=== PATIENT | female | born 1935 | race Caucasian/White ===

== ENCOUNTER 2021-12-05 13:23 | Inpatient (IN) | payer MEDICARE, OTHER ==
[~2021-12-05] VITALS: Ht 152.4 cm; Wt 56.7 kg
--- NOTE | 2021-12-05 13:30 | NUR ---
CRITICAL TROP REPORTED TO
--- NOTE | 2021-12-05 13:58 | NUR ---
IN ED WITH REPORT OF FALL AND RIGHT HIP PAIN, PLACED ON CM AND MAINTAIN SAFE ENVIRONMENT, PER CM SR AND VSS. RIGHT HIP IN ALIGNMENT.POSITION FOR COMFORT.
[2021-12-05 14:45] LABS: HEMATOCRIT 43.5 % (31.2-41.9); MEAN CORPUSCULAR HEMOGLOBIN 29.3 uug (24.7-32.8); MEAN CORPUSCULAR VOLUME 87.9 fL (75.5-95.3); PLATELET COUNT (AUTO) 195 K/uL (179-408)
[2021-12-05 14:48] LABS: CREATININE 0.8 mg/dL (0.6-1.3)
[2021-12-05 14:53] LABS: BILIRUBIN,TOTAL 1.1 mg/dL (0.2-1.0); TOTAL PROTEIN, SERUM 6.9 g/dL (6.4-8.2)
[2021-12-05] MEDS ORDERED: ASPIRIN 81 MG TAB.CHEW PO ONE (15:45)
--- NOTE | 2021-12-05 15:58 | NUR ---
BATCH OR CONTINUOUS STILL OPERATOR OBTAINED 12 LEAD EKG AND GIVEN TO
[2021-12-05 16:39] LABS: *BILIRUBIN,URIN NEGATIVE (NEGATIVE); *CLARITY,URINE CLEAR (CLEAR); *COLOR,URINE YELLOW (YELLOW); *KETONES,URINE 2+ (NEGATIVE); *UROBILINOGEN,URINE 0.2 E.U./dl (NORMAL); LEUKOCYTE ESTERASE ,URINE NEGATIVE (NEGATIVE); NITRITE, URINE NEGATIVE (NEGATIVE); UGLUCOSE NEGATIVE (NEGATIVE)
[2021-12-05 16:40] LABS: *BLOOD, URINE TRACE (NEGATIVE)
[2021-12-05 16:58] LABS: BACTERIA,URINE FEW /HPF (NONE SEEN); RBC,URINE 0-3 /HPF (0-3); SQUAMOUS EPITHELIAL CELL,UR FEW /HPF (NONE SEEN); WBC,URINE 0-3 /HPF (0-3)
--- NOTE | 2021-12-05 17:15 | NUR ---
PATIENT ADMITTED TO [facility] FOR ELEVATED LEUKO AND TROP, POTASSIUM 3.0 NO ORDER FOR REPLACEMENT.
[2021-12-05] MEDS ORDERED: hydrALAZINE HCL 20 MG/1 ML VIAL IV PRN (17:30)
[2021-12-05] MEDS: CEFEPIME HCL 1 G in IV DEXTROSE 5% 50 ML IV SCH ×3 (17:30→18:30)
[2021-12-05] MEDS ORDERED: ONDANSETRON 4 MG/2 ML VIAL IV PRN (17:30)
[2021-12-05] MEDS ORDERED: VANCOMYCIN IV 1,000 MG in IV DEXTROSE 5% 250 ML IV SCH (17:30)
[2021-12-05] MEDS ORDERED: MAGNESIUM HYDROXIDE 30 ML LIQUID UDC PO PRN (17:30)
--- NOTE | 2021-12-05 17:40 | NUR ---
ELEVATED TROP CALLED TO RN AND REPORTED ELEVATED TROP TO ED PHYSICIAN: TROP 155. 1330/ LACTIC 2.4, ELEVATED.
--- NOTE | 2021-12-05 19:30 | NUR ---
REPORT GIVEN TO INCOMING RN
--- NOTE | 2021-12-05 19:30 | NUR ---
CALLED OUTSIDE PHARMACY TO VERIFY VACOMYCIN AND MAXEPINE ORDER.
[2021-12-05] MEDS ORDERED: ASPIRIN 81 MG TAB.CHEW ONE (19:34)
[2021-12-05] MEDS ORDERED: VANCOMYCIN HCL 500 MG VIAL ONE ×2 (19:35→20:12)
[2021-12-05] MEDS ORDERED: CEFEPIME HCL 1 G VIAL ONE ×2 (19:35→21:28)
--- NOTE | 2021-12-05 19:55 | NUR ---
PHARMACY CALLED TO CLARIFY ORDER B/C FREQUENCY FOR BOTH ORDERS WAS INCORRECT. DOCTOR MARIANN WAS CONTACTED TO REVIEW THE ORDER. PER HIS REQUEST, THE PHARMACY CHANGED THE FREQUNCY FOR THE MEDICATIONS.
[2021-12-05] MEDS ORDERED: VANCOMYCIN IV 1,000 MG in IV DEXTROSE 5% 250 ML IV ONE (20:00)
--- NOTE | 2021-12-05 20:00 | NUR ---
THE UNVERIFIED VACOMYCIN ORDER WAS GIVEN AT 1948; THEREFORE, WHEN THE PHARMACY VERIFIED THE NEW ORDER FOR VACOMYCIN I PUT NON-ADMIN (STATING TO REFER TO NURING NOTE).
--- NOTE | 2021-12-05 20:43 | NUR ---
NOTIFIED DR. NAVARRETE THAT POTASSIUM FOR PATIENT 3.0 NO PCP DID NOT REPLACED.
[2021-12-05] MEDS ORDERED: POTASSIUM BICARBONATE/CIT AC 25 MEQ TABLET.EFF PO ONE (20:45)
[2021-12-05] MEDS ORDERED: CEFEPIME HCL 1 G in IV DEXTROSE 5% 50 ML IV ONE (21:00)
[2021-12-05] MEDS ORDERED: POTASSIUM BICARBONATE/CIT AC 25 MEQ TABLET.EFF ONE (21:28)
--- NOTE | 2021-12-05 21:35 | NUR ---
REPORT GIVEN TO DUNCAN RIZZO.
--- NOTE | 2021-12-05 21:37 | NUR ---
Report received from Tara RIZZO
[2021-12-05 22:30] VITALS: BP 112/60
--- NOTE | 2021-12-05 22:30 | NUR ---
Pt. admitted to TELE room 314, under care of Dr. Proctor. Belongs List completed Carin RIZZO aware of patients arrival to unit.
[2021-12-05] MEDS: IV NS 1000 ML 1,000 ML IV SCH (23:18)
[2021-12-06 00:52] VITALS: BP 110/61
[2021-12-06 04:23] VITALS: BP 133/71
--- NOTE | 2021-12-06 05:37 | NUR ---
Admitted to Tele, SR on monitor. Pt is confused but able to be redirected and answer simple questions. IV site is intact, running ordered fluids. Tolerated all medications given. Will endorse to day shift.
[2021-12-06] MEDS: IV NS 1000 ML 1,000 ML IV SCH ×3 (06:07→22:04)
--- NOTE | 2021-12-06 06:46 | NUR ---
No urine noted in diaper this morning, Cruzito Franco MACHINE SKIVER noted with orders to just monitor for now. No distress noted.
[2021-12-06 07:07] LABS: HEMATOCRIT 40.1 % (31.2-41.9); MEAN CORPUSCULAR HEMOGLOBIN 29.7 uug (24.7-32.8); MEAN CORPUSCULAR VOLUME 87.1 fL (75.5-95.3); PLATELET COUNT (AUTO) 204 K/uL (179-408)
[2021-12-06 08:05] LABS: BILIRUBIN,TOTAL 0.9 mg/dL (0.2-1.0); CREATININE 0.8 mg/dL (0.6-1.3); PHOSPHOROUS 2.3 mg/dL (2.5-4.9); POTASSIUM 3.7 mmol/L (3.5-5.1); TOTAL PROTEIN, SERUM 6.3 g/dL (6.4-8.2)
[2021-12-06] MEDS: CEFEPIME HCL 2 G in IV DEXTROSE 5% 100 ML IV SCH ×2 (08:26→22:04)
[2021-12-06] MEDS: DOCUSATE SODIUM 100 MG CAPSULE PO SCH ×2 (09:16→17:15)
[2021-12-06] MEDS: HEPARIN SODIUM,PORCINE 5,000 UNITS/ML VIAL SQ SCH ×2 (09:17→22:05)
--- NOTE | 2021-12-06 10:51 | NUR ---
Patient was pulling her IV tubes and constantly tried to knock out her IV pole. Had to order mitten restraints and explain to the patient why she will have mittens on. Currently patient is taking a nap. No distress notes at the moment. Will continue to monitor
--- NOTE | 2021-12-06 10:57 | NUR ---
Patient's diaper was wet when we changed her, so she had some urine output. Will continue to monitor during the day.
[2021-12-06] MEDS: ACETAMINOPHEN 325 MG TABLET PO PRN (12:06)
[2021-12-06 12:07] VITALS: BP 95/69
[2021-12-06] MEDS ORDERED: LEVO50TA PO (12:15)
[2021-12-06] MEDS ORDERED: LATA2.5D15 EACHEYE (12:15)
[2021-12-06] MEDS ORDERED: ROSU10TA2 PO (12:15)
[2021-12-06] MEDS ORDERED: TRAZ-182 PO (12:15)
[2021-12-06] MEDS ORDERED: DONE10TA44 PO (12:15)
[2021-12-06] MEDS: VANCOMYCIN IV 1,000 MG in IV DEXTROSE 5% 250 ML IV SCH (13:47)
[2021-12-06] MEDS: METOPROLOL TARTRATE 25 MG TABLET PO SCH ×2 (15:00→22:00)
[2021-12-06] MEDS ORDERED: NEUTRA PHOS PACKET PO ONE (16:00)
[2021-12-06 16:10] VITALS: BP 106/66
[2021-12-06] MEDS ORDERED: AMIODARONE HCL IV 150 MG in IV DEXTROSE 5% 100 ML IV ONE (16:45)
[2021-12-06] MEDS: AMIODARONE HCL IV 450 MG in IV DEXTROSE 5% 250 ML IV PRN (17:45)
[2021-12-06 20:00] VITALS: BP 95/67
--- NOTE | 2021-12-06 22:00 | NUR ---
Patient is converted sinus rhythm with lots of PAC, at this time amiodarone drip continue, cont to monitor.
--- NOTE | 2021-12-06 23:45 | NUR ---
Patient asleep but arousable, sinus rhythm at 78 on the tele monitor, cont on amiodarone drip cont to monitor.
[2021-12-07] VITALS: BP 119/61
[2021-12-07] MEDS: AMIODARONE HCL IV 450 MG in IV DEXTROSE 5% 250 ML IV PRN (03:25)
[2021-12-07 04:00] VITALS: BP 124/70
--- NOTE | 2021-12-07 06:55 | NUR ---
Patient asleep no sob no chest pain, sinus rhythm on tele at this time, v/s stable, cont to monitor.
[2021-12-07 07:05] LABS: HEMATOCRIT 37.4 % (31.2-41.9); MEAN CORPUSCULAR HEMOGLOBIN 29.7 uug (24.7-32.8); MEAN CORPUSCULAR VOLUME 87.6 fL (75.5-95.3); PLATELET COUNT (AUTO) 201 K/uL (179-408)
[2021-12-07 07:08] LABS: CREATININE 0.8 mg/dL (0.6-1.3); POTASSIUM 3.5 mmol/L (3.5-5.1)
[2021-12-07] MEDS: IV NS 1000 ML 1,000 ML IV SCH ×2 (07:09→08:11)
[2021-12-07 07:14] LABS: BILIRUBIN,TOTAL 0.8 mg/dL (0.2-1.0); TOTAL PROTEIN, SERUM 5.5 g/dL (6.4-8.2)
[2021-12-07 07:33] VITALS: BP 144/71
--- NOTE | 2021-12-07 08:00 | NUR ---
Pt is in no acute distress. Pt on mittens pt currently pulling on lines. Pt SNR on tele with rate of 65. Pt denies any c/o pain. Alert x 1 and confused.
[2021-12-07] MEDS: VANCOMYCIN IV 1,000 MG in IV DEXTROSE 5% 250 ML IV SCH ×2 (08:10→23:23)
[2021-12-07] MEDS: DOCUSATE SODIUM 100 MG CAPSULE PO SCH ×2 (09:30→16:42)
[2021-12-07] MEDS: HEPARIN SODIUM,PORCINE 5,000 UNITS/ML VIAL SQ SCH ×2 (09:31→20:14)
[2021-12-07] MEDS: AMIODARONE HCL 200 MG TABLET PO SCH ×2 (09:33→20:14)
[2021-12-07] MEDS: CEFEPIME HCL 2 G in IV DEXTROSE 5% 100 ML IV SCH ×2 (09:46→20:40)
[2021-12-07 11:34] VITALS: BP 108/67
[2021-12-07] MEDS ORDERED: DOSING PER PHARMACY-AMIKACIN IV XX PRN (15:00)
--- NOTE | 2021-12-07 15:00 | NUR ---
Son express possible change of code status. Son will speak with his family members and decide if they want to change pt's code status.
[2021-12-07 16:00] VITALS: BP 124/61
[2021-12-07 20:00] VITALS: BP 153/78
[2021-12-08] VITALS: BP 108/81
[2021-12-08 04:00] VITALS: BP 127/82
--- NOTE | 2021-12-08 05:07 | NUR ---
PATIENT ASLEEP IN BED, EASILY AROUSABLE. VSS. ON TELE SR. BED ALARM ON. CALL LIGHT IN REACH. ALL NEEDS ATTENDED. WILL CONTINUE TO MONITOR AND ASSESS.
[2021-12-08 06:55] LABS: HEMATOCRIT 36.8 % (31.2-41.9); MEAN CORPUSCULAR HEMOGLOBIN 29.3 uug (24.7-32.8); MEAN CORPUSCULAR VOLUME 86.3 fL (75.5-95.3); PLATELET COUNT (AUTO) 221 K/uL (179-408)
[2021-12-08 07:05] LABS: CREATININE 0.7 mg/dL (0.6-1.3); POTASSIUM 3.2 mmol/L (3.5-5.1)
[2021-12-08 07:12] LABS: BILIRUBIN,TOTAL 0.8 mg/dL (0.2-1.0); TOTAL PROTEIN, SERUM 5.4 g/dL (6.4-8.2)
[2021-12-08] MEDS ORDERED: POTASSIUM CHLORIDE 20 MEQ POWDER PACKET PO ONE (09:00)
[2021-12-08] MEDS: POTASSIUM CHLORIDE 50 ML IV SCH ×2 (10:43→16:07)
[2021-12-08] MEDS: DOCUSATE SODIUM 100 MG CAPSULE PO SCH ×2 (10:44→16:16)
[2021-12-08] MEDS: HEPARIN SODIUM,PORCINE 5,000 UNITS/ML VIAL SQ SCH ×2 (10:44→21:41)
[2021-12-08] MEDS: AMIODARONE HCL 200 MG TABLET PO SCH ×2 (10:46→21:39)
[2021-12-08] MEDS: CEFEPIME HCL 2 G in IV DEXTROSE 5% 100 ML IV SCH (10:47)
[2021-12-08 11:32] VITALS: BP 124/71
[2021-12-08 15:33] VITALS: BP 110/62
[2021-12-08] MEDS: VANCOMYCIN IV 1,000 MG in IV DEXTROSE 5% 250 ML IV SCH (16:16)
[2021-12-08] MEDS: ACETAMINOPHEN 325 MG TABLET PO PRN (17:47)
[2021-12-08 20:00] VITALS: BP 131/59
[2021-12-08] MEDS: ATORVASTATIN 20 MG TABLET PO SCH (21:38)
[2021-12-08] MEDS: LATANOPROST OPHT DROP 2.5 ML BOTTLE EACHEYE SCH (21:38)
[2021-12-08] MEDS: TRAZODONE 50 MG TABLET PO SCH (21:39)
[2021-12-09] VITALS: BP 144/86
[2021-12-09] MEDS ORDERED: AMIODARONE HCL IV 150 MG in IV DEXTROSE 5% 100 ML IV ONE (02:30)
[2021-12-09] MEDS ORDERED: AMIODARONE HCL IV 450 MG in IV DEXTROSE 5% 250 ML IV PRN (02:30)
--- NOTE | 2021-12-09 02:30 | NUR ---
Assumed care of patient. Afib RVR noted on monitor, HR 170s. Pt is awake and alert to self, asymptomatic. Started on Amiodarone drip per protocol
[2021-12-09] MEDS ORDERED: AMIODARONE HCL 150 MG/3 ML VIAL IV ONE ×2 (02:38)
[2021-12-09] MEDS: AMIODARONE HCL IV 450 MG in IV DEXTROSE 5% 250 ML IV PRN ×2 (03:15→11:57)
[2021-12-09 04:00] VITALS: BP 131/66
[2021-12-09] MEDS: LEVOTHYROXINE SODIUM 50 MCG TABLET PO SCH (06:48)
[2021-12-09] MEDS: MORPHINE SULFATE 2 MG/1 ML DISP.SYRIN IV PRN (06:48)
[2021-12-09 07:36] LABS: HEMATOCRIT 39.3 % (31.2-41.9); MEAN CORPUSCULAR HEMOGLOBIN 29.5 uug (24.7-32.8); MEAN CORPUSCULAR VOLUME 85.9 fL (75.5-95.3); PLATELET COUNT (AUTO) 248 K/uL (179-408)
--- NOTE | 2021-12-09 07:45 | NUR ---
AWAKE ALERT AND ABLE TO FOLLOW COMMANDS BUT CONFUSED X3, ON AMIODARONE DRIP FOR RVR, DENIES CHEST PAIN OR SOB
[2021-12-09 07:54] LABS: BILIRUBIN,TOTAL 0.8 mg/dL (0.2-1.0); CREATININE 0.7 mg/dL (0.6-1.3); POTASSIUM 3.4 mmol/L (3.5-5.1); TOTAL PROTEIN, SERUM 5.9 g/dL (6.4-8.2)
[2021-12-09 08:05] VITALS: BP 134/98
[2021-12-09] MEDS: VANCOMYCIN IV 1,000 MG in IV DEXTROSE 5% 250 ML IV SCH (08:55)
[2021-12-09] MEDS: POTASSIUM CHLORIDE 50 ML IV SCH ×4 (08:55→15:41)
[2021-12-09] MEDS: HEPARIN SODIUM,PORCINE 5,000 UNITS/ML VIAL SQ SCH ×2 (08:56→20:30)
[2021-12-09] MEDS: DOCUSATE SODIUM 100 MG CAPSULE PO SCH ×2 (08:57→17:10)
[2021-12-09] MEDS: AMIODARONE HCL 200 MG TABLET PO SCH ×2 (08:59→20:21)
[2021-12-09] MEDS ORDERED: DONEPEZIL 10 MG TABLET PO SCH (09:00)
[2021-12-09] MEDS ORDERED: POTASSIUM CHLORIDE 20 MEQ POWDER PACKET PO ONE (09:00)
--- NOTE | 2021-12-09 09:58 | NUR ---
REMAINS CONFUSED AND DISORIENTED X3 TRYING TO PULL IV LINES, CONTINUE WITH SOFT WRIST RESTRAINT.
[2021-12-09 12:06] VITALS: BP 121/97
[2021-12-09 16:15] VITALS: BP 117/83
[2021-12-09] MEDS: CEFAZOLIN 1 G in IV DEXTROSE 5% 50 ML IV SCH (17:51)
--- NOTE | 2021-12-09 18:23 | NUR ---
PER DR ESTER STEWART TO DC AMIODARONE DRIP AFTER PO DOSE AT 2100. CONTINUE ALYSHA MONITORING
[2021-12-09 20:00] VITALS: BP 129/71
[2021-12-09] MEDS ORDERED: VANCOMYCIN IV 1,000 MG in IV DEXTROSE 5% 250 ML IV SCH (20:00)
[2021-12-09] MEDS: ACETAMINOPHEN 325 MG TABLET PO PRN (20:20)
[2021-12-09] MEDS: TRAZODONE 50 MG TABLET PO SCH (20:20)
[2021-12-09] MEDS: ATORVASTATIN 20 MG TABLET PO SCH (20:20)
[2021-12-09] MEDS: LATANOPROST OPHT DROP 2.5 ML BOTTLE EACHEYE SCH (20:34)
[2021-12-10] VITALS (9 sets, daily range): BP systolic 108–132; BP diastolic 61–90
[2021-12-10] MEDS: CEFAZOLIN 1 G in IV DEXTROSE 5% 50 ML IV SCH ×3 (01:40→17:00)
--- NOTE | 2021-12-10 02:45 | NUR ---
Pt began to have episodes of vtach and bigeminy, pt asymptomatic. Dr. Meneses notified with orders for stat EKG.
--- NOTE | 2021-12-10 04:10 | NUR ---
At 0403H patient went into vtach for 18 beats. Placed on 4L NC. No distress at this time. VSS.
[2021-12-10] MEDS: LEVOTHYROXINE SODIUM 50 MCG TABLET PO SCH (06:34)
[2021-12-10 07:23] LABS: HEMATOCRIT 38.3 % (31.2-41.9); MEAN CORPUSCULAR HEMOGLOBIN 29.8 uug (24.7-32.8); MEAN CORPUSCULAR VOLUME 86.9 fL (75.5-95.3); PLATELET COUNT (AUTO) 254 K/uL (179-408)
[2021-12-10 07:39] LABS: BILIRUBIN,TOTAL 0.7 mg/dL (0.2-1.0); CREATININE 0.8 mg/dL (0.6-1.3); POTASSIUM 3.5 mmol/L (3.5-5.1); TOTAL PROTEIN, SERUM 5.7 g/dL (6.4-8.2)
--- NOTE | 2021-12-10 07:43 | NUR ---
EKG strips seen by Dr. Meneses. Orders to have lidocaine ready for IV push at 100mg. Defibrillator pads to be placed on patient. Awaiting for central supply to bring to floor.
[2021-12-10] MEDS: HEPARIN SODIUM,PORCINE 5,000 UNITS/ML VIAL SQ SCH ×2 (08:22→20:20)
[2021-12-10] MEDS: DOCUSATE SODIUM 100 MG CAPSULE PO SCH ×2 (08:22→16:32)
[2021-12-10] MEDS ORDERED: LIDOCAINE 2% 100 MG/5 ML SYRINGE IV ONE (08:45)
[2021-12-10] MEDS ORDERED: AMIODARONE HCL 200 MG TABLET PO SCH (09:00)
[2021-12-10] MEDS ORDERED: LIDOCAINE 2% 100 MG/5 ML SYRINGE IV PRN (09:00)
[2021-12-10] MEDS: METOPROLOL TARTRATE 25 MG TABLET PO SCH ×2 (09:51→20:22)
[2021-12-10] MEDS: GLUCERNA SHAKE 237 ML CAN PO SCH ×3 (09:51→16:52)
[2021-12-10] MEDS: POTASSIUM CHLORIDE 50 ML IV SCH ×4 (10:27→13:59)
[2021-12-10] MEDS: MAGNESIUM SULFATE/D5W 100 ML IV SCH ×2 (10:28→11:29)
--- NOTE | 2021-12-10 18:30 | NUR ---
Patient tolerated care well throughout shift. Patient slept throughout shift, woken up during hygiene needs. Patient has no complaints of pain or any distress. Currently sinus rhythm on telemetry. Lidocaine not given during shift. Will endorse information to PM nurse. IV site patent on Right upper arm. Left upper arm midline needing constant flushing for patency. Bed left in lowest position with call light within reach. Comfort measures provided. Will endorse information to PM nurse.
[2021-12-10] MEDS: LATANOPROST OPHT DROP 2.5 ML BOTTLE EACHEYE SCH (20:15)
[2021-12-10] MEDS: ATORVASTATIN 20 MG TABLET PO SCH (20:16)
[2021-12-10] MEDS: TRAZODONE 50 MG TABLET PO SCH (20:21)
[2021-12-11] VITALS: BP 125/71
[2021-12-11] MEDS: CEFAZOLIN 1 G in IV DEXTROSE 5% 50 ML IV SCH ×3 (01:48→17:43)
[2021-12-11 04:07] VITALS: BP 135/85
[2021-12-11] MEDS: LEVOTHYROXINE SODIUM 50 MCG TABLET PO SCH (06:15)
[2021-12-11 06:51] LABS: HEMATOCRIT 37.9 % (31.2-41.9); MEAN CORPUSCULAR HEMOGLOBIN 30.2 uug (24.7-32.8); MEAN CORPUSCULAR VOLUME 86.5 fL (75.5-95.3); PLATELET COUNT (AUTO) 287 K/uL (179-408)
--- NOTE | 2021-12-11 06:57 | NUR ---
Pt slept well in between care; safety maintained; repositioned q2h; needs attended. VSS.
[2021-12-11 07:12] LABS: BILIRUBIN,TOTAL 0.4 mg/dL (0.2-1.0); CREATININE 0.7 mg/dL (0.6-1.3); MAGNESIUM 1.8 mg/dL (1.8-2.4); PHOSPHOROUS 3.4 mg/dL (2.5-4.9); POTASSIUM 3.8 mmol/L (3.5-5.1); TOTAL PROTEIN, SERUM 5.5 g/dL (6.4-8.2)
[2021-12-11] MEDS: GLUCERNA SHAKE 237 ML CAN PO SCH ×3 (08:51→17:43)
[2021-12-11] MEDS: DOCUSATE SODIUM 100 MG CAPSULE PO SCH ×2 (08:51→17:43)
[2021-12-11] MEDS: METOPROLOL TARTRATE 25 MG TABLET PO SCH ×2 (08:52→21:40)
[2021-12-11] MEDS: HEPARIN SODIUM,PORCINE 5,000 UNITS/ML VIAL SQ SCH ×2 (08:54→21:46)
[2021-12-11 11:55] VITALS: BP 131/70
[2021-12-11] MEDS: MORPHINE SULFATE 2 MG/1 ML DISP.SYRIN IV PRN (12:38)
[2021-12-11 16:13] VITALS: BP 126/66
--- NOTE | 2021-12-11 18:33 | NUR ---
Patient tolerated care well throughout shift with no complaints or pain. Patient visited by grandson, and at bedside. Patient able to consume about 50% of Glucerna. Educated on the importance of meal consumption. Patient sinus rhythm throughout shift. Bed left in lowest position with call light within reach. Comfort measures provided. Will endorse information to PM nurse.
[2021-12-11 20:00] VITALS: BP_SYST 130; BP_SYST 157; BP_DIAS 57; BP_DIAS 87
[2021-12-11] MEDS: LATANOPROST OPHT DROP 2.5 ML BOTTLE EACHEYE SCH (21:39)
[2021-12-11] MEDS: TRAZODONE 50 MG TABLET PO SCH (21:40)
[2021-12-11] MEDS: ATORVASTATIN 20 MG TABLET PO SCH (21:40)
[2021-12-11] MEDS: HYDROCODONE/APAP 5-325MG TABLET PO PRN (21:54)
[2021-12-12] VITALS (8 sets, daily range): BP systolic 96–154; BP diastolic 59–87
[2021-12-12] MEDS: CEFAZOLIN 1 G in IV DEXTROSE 5% 50 ML IV SCH ×3 (02:18→18:00)
[2021-12-12] MEDS: LEVOTHYROXINE SODIUM 50 MCG TABLET PO SCH (06:16)
[2021-12-12 06:56] LABS: HEMATOCRIT 37.8 % (31.2-41.9); MEAN CORPUSCULAR VOLUME 86.8 fL (75.5-95.3); PLATELET COUNT (AUTO) 305 K/uL (179-408)
[2021-12-12 07:05] LABS: BILIRUBIN,TOTAL 0.6 mg/dL (0.2-1.0); CREATININE 0.7 mg/dL (0.6-1.3); MAGNESIUM 1.9 mg/dL (1.8-2.4); PHOSPHOROUS 3.6 mg/dL (2.5-4.9); POTASSIUM 3.9 mmol/L (3.5-5.1); TOTAL PROTEIN, SERUM 5.6 g/dL (6.4-8.2)
--- NOTE | 2021-12-12 08:00 | NUR ---
received resting in bed, oriented to self and place, states slept good last night, on 2l/nc 02 sat at 96%, SR 70's, no distress noted, repositioned for breakfast, call light within reach
[2021-12-12] MEDS: GLUCERNA SHAKE 237 ML CAN PO SCH ×3 (08:41→17:00)
[2021-12-12] MEDS: DOCUSATE SODIUM 100 MG CAPSULE PO SCH ×2 (09:33→17:00)
[2021-12-12] MEDS: METOPROLOL TARTRATE 25 MG TABLET PO SCH (09:34)
[2021-12-12] MEDS: HEPARIN SODIUM,PORCINE 5,000 UNITS/ML VIAL SQ SCH ×2 (09:34→21:32)
--- NOTE | 2021-12-12 10:00 | NUR ---
stele afib with RVR and slowly going up, pst denies of chest pain , no shortness of breath, Dr Vega informed with orders- to be started on Cardizem drip
[2021-12-12] MEDS ORDERED: DILTIAZEM HCL IV 125 MG in IV NORMAL SALINE 100 ML IV PRN (10:15)
--- NOTE | 2021-12-12 11:28 | NUR ---
cardizem drip started VS taken and recorded, transferred to CCU as ALYSHA status, tele SR 90"s, all belongings with her, son Saqib informed of transfer
--- NOTE | 2021-12-12 11:29 | NUR ---
DR Meneses spoke to son Saqib
--- NOTE | 2021-12-12 12:17 | NUR ---
Received pt. as ALYSHA status as reported. HR of 81 sbp of 140/87, saturation of 94% on 2L NC. Pt. AAOx1. No respiratory distress noted. Patient connected to monitor tech by Nursing building construction supervisor. Cardizem running at 10mg/hr. with HR uncontrolled on/off. Will continue to monitor.
--- NOTE | 2021-12-12 14:50 | NUR ---
Cardizem drip off at this time, Patient has been on NSR rate in the 70's. sbp 127/80.saturation 97%. rr 16
--- NOTE | 2021-12-12 15:40 | NUR ---
PT's family at bedside.
[2021-12-12] MEDS: LATANOPROST OPHT DROP 2.5 ML BOTTLE EACHEYE SCH (21:00)
[2021-12-12] MEDS ORDERED: HEPARIN SODIUM,PORCINE 5,000 UNITS/ML VIAL ONE (21:14)
[2021-12-12] MEDS ORDERED: ATORVASTATIN 20 MG TABLET ONE (21:14)
[2021-12-12] MEDS ORDERED: TRAZODONE 50 MG TABLET ONE (21:14)
[2021-12-12] MEDS: TRAZODONE 50 MG TABLET PO SCH (21:31)
[2021-12-12] MEDS: ATORVASTATIN 20 MG TABLET PO SCH (21:31)
[2021-12-12] MEDS ORDERED: HYDROCODONE/APAP 5-325MG TABLET ONE (22:14)
[2021-12-12] MEDS: HYDROCODONE/APAP 5-325MG TABLET PO PRN (22:15)
[2021-12-13 00:40] VITALS: BP 160/80
[2021-12-13] MEDS: CEFAZOLIN 1 G in IV DEXTROSE 5% 50 ML IV SCH ×3 (01:29→17:12)
[2021-12-13 04:25] VITALS: BP 126/62
[2021-12-13] MEDS: LEVOTHYROXINE SODIUM 50 MCG TABLET PO SCH (06:00)
--- NOTE | 2021-12-13 06:38 | NUR ---
Left pt. in bed resting, neuro-desai slightly confused. mittens on/off intermittently. Hemodynamically stable sbp within desired limits. No c/of of any discomfort. Iv line patent. will endorse to incoming shift.
[2021-12-13 06:50] LABS: HEMATOCRIT 36.8 % (31.2-41.9); MEAN CORPUSCULAR HEMOGLOBIN 28.6 uug (24.7-32.8); MEAN CORPUSCULAR VOLUME 86.2 fL (75.5-95.3); PLATELET COUNT (AUTO) 341 K/uL (179-408)
[2021-12-13 07:38] LABS: CREATININE 0.7 mg/dL (0.6-1.3); PHOSPHOROUS 3.2 mg/dL (2.5-4.9); POTASSIUM 3.6 mmol/L (3.5-5.1)
[2021-12-13 07:46] VITALS: BP 106/60
[2021-12-13] MEDS: DOCUSATE SODIUM 100 MG CAPSULE PO SCH ×2 (08:37→17:12)
[2021-12-13] MEDS: HEPARIN SODIUM,PORCINE 5,000 UNITS/ML VIAL SQ SCH ×2 (08:37→21:09)
[2021-12-13] MEDS: GLUCERNA SHAKE 237 ML CAN PO SCH ×3 (08:38→17:13)
[2021-12-13] MEDS ORDERED: POTASSIUM CHLORIDE 20 MEQ POWDER PACKET PO ONE (09:30)
[2021-12-13] MEDS: DILTIAZEM HCL CD 120 MG CAP.SR.24H PO SCH (09:42)
[2021-12-13 10:28] LABS: *BILIRUBIN,URIN 1+ (NEGATIVE); *CLARITY,URINE SLIGHTLY CLOUDY (CLEAR); *COLOR,URINE AMBER (YELLOW); *KETONES,URINE 1+ (NEGATIVE); *UROBILINOGEN,URINE 0.2 E.U./dl (NORMAL); LEUKOCYTE ESTERASE ,URINE NEGATIVE (NEGATIVE); NITRITE, URINE NEGATIVE (NEGATIVE); UGLUCOSE NEGATIVE (NEGATIVE)
[2021-12-13 10:39] LABS: *BLOOD, URINE TRACE (NEGATIVE)
[2021-12-13 10:42] LABS: MUCUS,URINE MANY /LPF (0-FEW); SQUAMOUS EPITHELIAL CELL,UR FEW /HPF (NONE SEEN)
[2021-12-13 10:43] LABS: RBC,URINE 0-3 /HPF (0-3)
[2021-12-13 10:46] LABS: YEAST,URINE FEW /HPF (NONE SEEN)
[2021-12-13 10:48] LABS: BACTERIA,URINE FEW /HPF (NONE SEEN)
[2021-12-13 11:56] VITALS: BP 98/61
[2021-12-13 12:42] LABS: LYMPHOCYTES % (MANUAL) 11 % (20-40); MONOCYTES % (MANUAL) 8 % (2-10); NEUTROPHILS % (MANUAL) 81 % (42-75)
[2021-12-13 16:02] VITALS: BP 114/61
--- NOTE | 2021-12-13 18:39 | NUR ---
No concerns identified during the shift. no discomfort identified. minimal pain noted upon turning but refused pain medication. vs remained stable. turned and repositioned for perfusion. will endorse for continuity of care.
[2021-12-13 20:00] VITALS: BP 101/46
[2021-12-13] MEDS: LATANOPROST OPHT DROP 2.5 ML BOTTLE EACHEYE SCH (21:00)
[2021-12-13] MEDS: ATORVASTATIN 20 MG TABLET PO SCH (21:08)
[2021-12-13] MEDS: TRAZODONE 50 MG TABLET PO SCH (21:08)
[2021-12-14] VITALS: BP 100/56
[2021-12-14] MEDS: CEFAZOLIN 1 G in IV DEXTROSE 5% 50 ML IV SCH ×3 (01:17→18:11)
[2021-12-14 04:09] VITALS: BP 100/54
[2021-12-14] MEDS: LEVOTHYROXINE SODIUM 50 MCG TABLET PO SCH (06:09)
--- NOTE | 2021-12-14 07:57 | NUR ---
SR on telemonitor. Awake and responsive. No ss of pain or resp distress. Comfortable on room air. Safety measures in place.
[2021-12-14] MEDS: DILTIAZEM HCL CD 120 MG CAP.SR.24H PO SCH (08:40)
[2021-12-14] MEDS: GLUCERNA SHAKE 237 ML CAN PO SCH ×3 (08:40→17:22)
[2021-12-14] MEDS: DOCUSATE SODIUM 100 MG CAPSULE PO SCH ×2 (08:41→17:00)
[2021-12-14] MEDS: HEPARIN SODIUM,PORCINE 5,000 UNITS/ML VIAL SQ SCH (08:45)
--- NOTE | 2021-12-14 08:54 | NUR ---
Seen and examined by Dr. Meneses with new order for ekg and pt eval.
[2021-12-14 11:01] LABS: HEMATOCRIT 37.2 % (31.2-41.9); MEAN CORPUSCULAR VOLUME 88.2 fL (75.5-95.3); PLATELET COUNT (AUTO) 388 K/uL (179-408)
[2021-12-14 11:08] LABS: BILIRUBIN,TOTAL 0.4 mg/dL (0.2-1.0); CREATININE 0.7 mg/dL (0.6-1.3); POTASSIUM 3.9 mmol/L (3.5-5.1); TOTAL PROTEIN, SERUM 5.8 g/dL (6.4-8.2)
--- NOTE | 2021-12-14 11:43 | NUR ---
EKg result relayed to Dr. Meneses no new order received at this time
[2021-12-14 12:17] VITALS: BP 114/82
[2021-12-14 16:13] VITALS: BP 120/62
--- NOTE | 2021-12-14 16:49 | NUR ---
Dr. Meneses with order for US abdomen. Frederic tech is made aware states he's off today and to have patient npo tomorrow tomorrow morning for procedure. aware.
--- NOTE | 2021-12-14 17:00 | NUR ---
patient's son and daughter in law are here and state they want their mom to leave [facility] and transfer to [facility]. r/b explained and stated understanding. they will arrange for transportation with [facility].
[2021-12-14] MEDS: ACETAMINOPHEN 325 MG TABLET PO PRN (17:49)
--- NOTE | 2021-12-14 18:30 | NUR ---
dr. barbosa on the floor and spoke with son. aware of family's plan to leave [facility].
--- NOTE | 2021-12-14 18:38 | NUR ---
at 1725, notified by shelter monitor of rapid afib with rvr hr 140s-160s. went to patient's room, son was at bedside stated he just gave her some grapes. patient awake and responsive no distress noted. bp noted 100/64 hr 142. denies chest pain or sob. some back pain when repositioned. tylenol administered as requested. dr. gallegos was made aware at 1730. per dr. gallegos, watch for now due to low bp and since pt is allergic to amiodarone, and if hr still high in 1 hr or if pt has symptoms to let him know. family at bedside aware. monitored closely. at 1757, converted to sr for 45-50s then went into rapid afib rvr again. pt remains asymptomatic. at 1813, converted to sr hr 80s. no ss of pain or distress. dr. gallegos aware.
--- NOTE | 2021-12-14 19:02 | NUR ---
sr on tele hr 79. no distress noted. endorsed to oncoming shift for continuity of care.
[2021-12-14 20:06] VITALS: BP 101/60
--- NOTE | 2021-12-14 20:15 | NUR ---
Pt left AMA. AMA form signed by pt. aware. Family arranged transport to [facility]. Endorsed pt to EMT. All questions were answered. Pt in stable condition. Denies chest pain or SOB. IV sites left in place. ID band and tele monitor removed.
== END 2021-12-14 20:15 | disposition left against medical advice (07) | DRG 871 ==
LOC: ER 13:30 → TELE3 21:38 → TELE-TD3 12-06 16:43 → TELE3 12-07 12:04 → TELE-TD3 12-09 02:30 → TELE3 12-11 19:30 → TELE-TD3 12-12 10:28 → OBSER 12-12 14:00 → TELE-TD3 12-12 22:30 → TELE3 12-13 11:20
PROVIDERS: ADMIT Internal Medicine; ATTEND Internal Medicine
PROC: 05H633Z Insertion of Infusion Device into Left Subclavian Vein, Percutaneous Approach (ICD-10-PCS; principal; 2021-12-06)
PROC: B547ZZA Ultrasonography of Left Subclavian Vein, Guidance (ICD-10-PCS; 2021-12-06)
DX: A41.01 Sepsis due to Methicillin susceptible Staphylococcus aureus (principal); E43 Unspecified severe protein-calorie malnutrition; I21.A1 Myocardial infarction type 2; M62.82 Rhabdomyolysis; E87.2 Acidosis; I50.30 Unspecified diastolic (congestive) heart failure; I47.2 Ventricular tachycardia; R65.20 Severe sepsis without septic shock; E03.9 Hypothyroidism, unspecified; E78.5 Hyperlipidemia, unspecified; E87.6 Hypokalemia; F03.90 Unspecified dementia, unspecified severity, without behavioral disturbance, psychotic disturbance, mood disturbance, and anxiety; I25.10 Atherosclerotic heart disease of native coronary artery without angina pectoris; I25.2 Old myocardial infarction; I48.0 Paroxysmal atrial fibrillation; I35.0 Nonrheumatic aortic (valve) stenosis; I11.0 Hypertensive heart disease with heart failure; R74.01 Elevation of levels of liver transaminase levels; W18.30XA Fall on same level, unspecified, initial encounter; M19.90 Unspecified osteoarthritis, unspecified site; Z66 Do not resuscitate; Z68.24 Body mass index [BMI] 24.0-24.9, adult; R94.31 Abnormal electrocardiogram [ECG] [EKG]; I49.3 Ventricular premature depolarization; T46.2X5A Adverse effect of other antidysrhythmic drugs, initial encounter; Y92.89 Other specified places as the place of occurrence of the external cause; Z20.822 Contact with and (suspected) exposure to COVID-19
CPT/HCPCS: 36415; 70030-TC; 70450; 71045; 72125; 73521; 73551; 83605; 83690; 83735; 84100; 84443; 84484; 85025; 87040; 87086; 93005; 93307; A4663; G0378; J0282; J0360; J0690; J0692; J1644; J2001; J2270; J3370; J3475; J3480; J3490; J7040; J7050